=== PATIENT | female | born 1980 | race Caucasian/White ===

== ENCOUNTER 2019-02-18 18:52 | Emergency (ER) | payer SELFPAY ==
[~2019-02-18] VITALS: Ht 165.1 cm; Wt 95.1 kg
[~2019-02-18 18:52] MED LIST: FURO-110 PO; POTA10TA37 PO
[2019-02-18 18:56] VITALS: Ht 165.1 cm; Wt 95.1 kg
[2019-02-18] MEDS ORDERED: POTASSIUM CHLORIDE (SR) 20 MEQ TAB PO STA (20:52)
[2019-02-18 23:10] VITALS: BP 144/80; PULSE 84; RESP 20
== END 2019-02-18 23:12 | disposition home or self-care (01) ==
LOC: E/R 18:52
DX: R60.0 Localized edema (principal); E87.6 Hypokalemia
CPT/HCPCS: 36415; 71045; 80053; 81001; 81003; 83690; 83880; 84439; 84443; 84481; 84484; 85025; 93005